=== PATIENT | female | born 1960 | race Caucasian/White ===

== ENCOUNTER → 2021-10-04 | Outpatient (CLI) | payer OTHER ==
[~2021-10-04] MED LIST: ASPI-485 PO; NITR0.4T26 SL; RANI-443 PO
--- NOTE | 2021-10-28 11:22 | DIREP ---
PROCEDURE: AORTIC ULTRASOUND COMPARISON: None. INDICATIONS: AAA SCREEN TECHNIQUE: Grayscale ultrasound was performed of the abdominal aorta. Spectral analysis and color-flow are also performed. This study was performed 10/04/2021 and placed online for interpretation 10/23/2021. FINDINGS: PROXIMAL AORTIC DIAMETER (cm): 2.8 x 2.9 cm Velocity: 64.0 cm/s MID-AORTIC DIAMETER (cm): 1.6 x 1.7 cm Velocity: 71.5 cm/s DISTAL AORTIC DIAMETER (cm): 1.3 x 1.6 cm Velocity: 52.2 cm/s RIGHT COMMON ILIAC DIAMETER (cm): 1.1 x 1.1 cm Velocity: 91.7 cm/s LEFT COMMON ILIAC DIAMETER (cm): 1.1 x 1.2 cm Velocity: 80.7 cm/s CONCLUSION: 1. No abdominal aortic aneurysm. 2. Proximal abdominal aorta is ectatic. Dictated by: PEDRO Physician on 10/23/2021 at 02:19 PM A
== END | disposition home or self-care (01) ==
LOC: RAD 09:31
PROVIDERS: ATTEND Nurse Practitioner Family
DX: Z13.6 Encounter for screening for cardiovascular disorders (principal); I77.811 Abdominal aortic ectasia
CPT/HCPCS: 76770